=== PATIENT | male | born 1965 | race Two or more races ===

== ENCOUNTER 2022-07-09 19:28 | Emergency (ER) | payer OTHER ==
[~2022-07-09] VITALS: Ht 177.8 cm; Wt 72.6 kg
[2022-07-09] MEDS ORDERED: METAXALONE800 MG PO (22:28)
[2022-07-09] MEDS ORDERED: CELEBREX200MG PO (22:28)
[2022-07-09] MEDS ORDERED: MEDROLPACK PO (22:28)
== END 2022-07-09 22:48 | disposition home or self-care (01) ==
LOC: ER 19:28
DX: S33.5XXA Sprain of ligaments of lumbar spine, initial encounter (principal); X58.XXXA Exposure to other specified factors, initial encounter; Y93.9 Activity, unspecified; Y92.9 Unspecified place or not applicable; Y99.9 Unspecified external cause status